=== PATIENT | female | born 1990 | race Caucasian/White ===

== ENCOUNTER 2018-12-13 11:15 | Inpatient (IN) | payer OTHER ==
[2018-12-13] MEDS: DEXTROSE 5%-LACTATED RINGERS 1,000 ML IV SCH ×2 (11:30→19:45)
[2018-12-13] MEDS ORDERED: AMPICILLIN - 2 GM in SODIUM CHLORIDE 100 ML IVPB ONE (12:00)
[2018-12-13 12:38] LABS: BASO % 0.5 % (0-2.0); EOS % 0.2 % (0-4.5); HEMATOCRIT 35.1 % (32.4-45.2); HEMOGLOBIN 11.8 GM/dL (10.7-15.3); LYMPH % 20.8 % (8-40); MCH 29.1 pg (25.7-33.7); MCHC 33.7 g/dl (32.0-36.0); MEAN CELL VOLUME 86.3 fl (80-96); MEAN PLT VOLUME 11.1 fl (7.5-11.1); MONO % 7.4 % (3.8-10.2); NEUT % 71.1 % (42.8-82.8); PLATELET COUNT 112 K/MM3 (134-434); RBC 4.07 M/mm3 (3.60-5.2); RDW 17.2 % (11.6-15.6)
[2018-12-13 12:48] VITALS: BMI 28.3
[2018-12-13 12:50] LABS: INR 0.91 (0.83-1.09); PROTHROMBIN TIME (PATIENT) 10.7 SEC (9.7-13.0)
--- NOTE | 2018-12-13 13:00 | HP ---
Past Medical History - Primary Care Physician PCP:: Josef Waters - Admission Chief Complaint: 40 weeks, labor History of Present Illness: 28 yo f 40 weeks,c/o pinkish discharge, low abdominal cramps, no rom, no fever , cx 3 cm 70 vx -3 ,membrane bulging, fhr cat 1, irregular contraction History Source: Patient Limitations to Obtaining History: Language Barrier - Past Medical History ...: 3 ...Para: 2 ...Term: 2 ...: 0 ...Spon : 0 ...Induced : 0 ...Multiple Gestation: 0 ...LMP: 04/08/18 ... Weeks Gestation by Dates: 35.4 ...EDC by Dates: 01/13/19 ...EDC by Sono: 12/13/18 - Past Surgical History Hx Myomectomy: No Hx Transabdominal Cerclage: No - Smoking History Smoking history: Never smoked Have you smoked in the past 12 months: No - Alcohol/Substance Use Hx Alcohol Use: No - Social History History of Recent Travel: No Home Medications - Allergies Allergies/Adverse Reactions: Allergies Allergy/AdvReac Type Severity Reaction Status Date / Time No Known Allergies Allergy Verified 12/13/18 11:55 - Home Medications Home Medications: Ambulatory Orders Prenat 115/Iron Fum/Folic/Dss [ 19 Tablet] 1 each PO DAILY 12/13/18 Review of Systems - Review of Systems Constitutional: reports: No Symptoms Eyes: reports: No Symptoms HENT: reports: No Symptoms Neck: reports: No Symptoms Cardiovascular: reports: No Symptoms Respiratory: reports: No Symptoms Gastrointestinal: reports: No Symptoms Breasts: reports: No Symptoms Reported Musculoskeletal: reports: No Symptoms Integumentary: reports: No Symptoms Neurological: reports: No Symptoms Endocrine: reports: No Symptoms Hematology/Lymphatic: reports: No Symptoms Psychiatric: reports: No Symptoms Physical Exam - Maternity Vital Signs: Vital Signs Temperature 98.4 F 12/13/18 11:30 Pulse Rate 68 12/13/18 11:30 Respiratory Rate 18 12/13/18 11:30 Blood Pressure 120/66 12/13/18 11:30 O2 Sat by Pulse Oximetry (%) Constitutional: Yes: Well Nourished, No Distress, Calm Eyes: Yes: WNL, Conjunctiva Clear, EOM Intact HENT: Yes: WNL, Atraumatic, Normocephalic Neck: Yes: WNL, Supple, Trachea Midline Cardiovascular: Yes: WNL, Regular Rate and Rhythm Breast(s): Yes: WNL - Abdominal Exam/OB Fundal Height: 38 Number of Fetuses: Single Presentation: Vertex Contractions: Yes Regularity: Irregular Intensity: Moderate Monitor Mode: External Heart Rate Location: [facility] Category: I Accelerations: Uniform Decelerations: None - Vaginal Exam/OB Vaginal Bleediing: No Speculum Exam: No Dilatation (cm): 3 cm Effacement (%): 70 Amniotic Membrane Status: Bulging Presentation: Vertex/Position Station: -3 - Labs Lab Results: CBC, BMP 12/13/18 12:25
[2018-12-13 13:04] LABS: ANION GAP 9 MMOL/L (8-16); BLOOD UREA NITROGEN 10 mg/dL (7-18); CALCIUM 8.4 mg/dL (8.5-10.1); CHLORIDE 108 mmol/L (98-107); CO2 23 mmol/L (21-32); CREATININE 0.6 mg/dL (0.55-1.3); GLUCOSE,RANDOM 75 mg/dL (74-106); SODIUM 141 mmol/L (136-145)
[2018-12-13] MEDS ORDERED: BUTORPHANOL TARTRATE 1 MG/ML VIAL IVPUSH PRN (13:05)
[2018-12-13] MEDS ORDERED: PROMETHAZINE HCL 25 MG/1 ML VIAL IVPUSH ONE (13:15)
[2018-12-13] MEDS ORDERED: TUBERCULIN PPD 5 TU/0.1ML SYRINGE (IN PATIENT USE ONLY) ID ONE (13:30)
[2018-12-13] MEDS ORDERED: AMPICILLIN SODIUM 1 GM VIAL ONE ×2 (14:55→20:00)
[2018-12-13 15:45] LABS: URINE APPEARANCE CLEAR; URINE BILIRUBIN NEGATIVE (<2.0 mg/dL); URINE COLOR LTYELLOW; URINE GLUCOSE (UA) NEGATIVE (NEGATIVE); URINE KETONE NEGATIVE (NEGATIVE); URINE LEUK ESTERASE NEGATIVE (NEGATIVE); URINE NITRITE NEGATIVE (NEGATIVE); URINE PROTEIN NEGATIVE (NEGATIVE); URINE UROBILINOGEN NEGATIVE mg/dL (0.2-1.0)
[2018-12-13 15:48] LABS: EPI CELLS RARE /HPF (FEW)
[2018-12-13] MEDS: AMPICILLIN - 1 GM in SODIUM CHLORIDE 100 ML IVPB SCH ×2 (16:00→20:08)
[2018-12-13 16:15] LABS: COCAINE, UR NEGATIVE ng/ml (CUTOFF=300); METHADONE, UR NEGATIVE ng/ml (CUTOFF=300); OPIATES, URI NEGATIVE ng/ml (CUTOFF=300); PHENCYCLIDINE,URINE NEGATIVE ng/ml (CUTOFF=25); URINE AMPHETAMINES NEGATIVE ng/ml (CUTOFF=500); URINE BARBITURATES NEGATIVE ng/ml (CUTOFF=200); URINE BENZODIAZEPINES NEGATIVE ng/ml (CUTOFF=200)
--- NOTE | 2018-12-13 23:44 | PN ---
Progress Note (short form) - Note Progress Note: cx 5 cm 80 vx -3 mi, fhr cat1 , irregular contraction , pitocin rba discussed
[2018-12-13] MEDS ORDERED: OXYTOCIN 30 UNITS in 0.9% NS 30 UNIT/500 ML INFUS.BAG IVPB SCH (23:45)
[2018-12-14] MEDS ORDERED: AMPICILLIN SODIUM 1 GM VIAL ONE ×2 (00:09→03:39)
[2018-12-14] MEDS: AMPICILLIN - 1 GM in SODIUM CHLORIDE 100 ML IVPB SCH ×3 (00:10→12:49)
[2018-12-14] MEDS ORDERED: OXYTOCIN 30 UNITS in 0.9% NS 30 UNIT/500 ML INFUS.BAG IVPB ONE (00:23)
[2018-12-14] MEDS ORDERED: BUTORPHANOL TARTRATE 1 MG/ML VIAL ONE ×5 (00:43→07:36)
[2018-12-14] MEDS ORDERED: PROMETHAZINE HCL 25 MG/1 ML VIAL ONE ×3 (00:44→07:36)
[2018-12-14] MEDS: DEXTROSE 5%-LACTATED RINGERS 1,000 ML IV SCH (03:59)
[2018-12-14] MEDS ORDERED: BUTORPHANOL TARTRATE 1 MG/ML VIAL IVPUSH ONE ×2 (04:20)
[2018-12-14] MEDS ORDERED: PROMETHAZINE HCL 25 MG/1 ML VIAL IVPUSH ONE (04:20)
[2018-12-14] MEDS ORDERED: OXYTOCIN 20 UNITS in 0.9% NS 20 UNIT/1,000 ML INFUS.BAG IV ONE ×2 (04:35→07:09)
[2018-12-14] MEDS: OXYTOCIN 20 UNITS in 0.9% NS 20 UNIT/1,000 ML INFUS.BAG IV SCH ×2 (05:00→07:05)
[2018-12-14] MEDS ORDERED: ACETAMINOPHEN 325 MG TABLET (FP) PO PRN (05:11)
[2018-12-14] MEDS ORDERED: WITCH HAZEL 50% (TUCKS) 40 PAD/JAR PAD TP PRN (05:11)
[2018-12-14] MEDS ORDERED: BENZOCAINE 28 GM HEMORRHOIDAL OINTMENT TP PRN (05:11)
[2018-12-14] MEDS ORDERED: METHYLERGONOVINE MALEATE 0.2 MG/1 ML AMP IM PRN (05:11)
[2018-12-14] MEDS ORDERED: IBUPROFEN 600 MG TABLET (FP) PO PRN (05:11)
[2018-12-14] MEDS ORDERED: BENZOCAINE 20% 57 GM BOTTLE TP PRN (05:11)
[2018-12-14] MEDS ORDERED: BISACODYL 10 MG SUPP.RECT RC PRN (05:11)
[2018-12-14] MEDS ORDERED: D5W-LR W/ 20 UNITS OXYTOCIN 1,000 ML IV SCH (05:15)
[2018-12-14 05:26] LABS: VENOUS PC02 47.5 mmHg (38-52); VENOUS PH 7.31 (7.32-7.42); VENOUS PO2 31.6 mmHg (28-48)
[2018-12-14] MEDS ORDERED: PROMETHAZINE HCL 25 MG/1 ML VIAL IVPB ONE (07:40)
[2018-12-14] MEDS ORDERED: FERRIC SUBSULFATE 500 ML BOTTLE TP ONE (09:11)
[2018-12-14 10:17] LABS: BASO % 0.5 % (0-2.0); HEMATOCRIT 40.5 % (32.4-45.2); HEMOGLOBIN 13.7 GM/dL (10.7-15.3); LYMPH % 7.1 % (8-40); MCH 29.2 pg (25.7-33.7); MCHC 33.9 g/dl (32.0-36.0); MEAN PLT VOLUME 11.4 fl (7.5-11.1); MONO % 5.4 % (3.8-10.2); PLATELET COUNT 111 K/MM3 (134-434); RBC 4.71 M/mm3 (3.60-5.2); RDW 17.6 % (11.6-15.6); WHITE BLOOD COUNT 10.6 K/mm3 (4.0-10.0)
[2018-12-14 10:54] LABS: INR 0.97 (0.83-1.09); PROTHROMBIN TIME (PATIENT) 11.5 SEC (9.7-13.0)
[2018-12-14] MEDS: FERROUS SO4 325 MG TABLET (FP) PO SCH ×2 (11:57→21:00)
[2018-12-14] MEDS: PRENATAL VITAMINS W/ FOLIC ACID TABLET (FP) PO SCH (11:58)
--- NOTE | 2018-12-14 17:42 | PN ---
Progress Note (short form) - Note Progress Note: was called by nurse has vaginal trickling , no heavy VG, no pain , low platelets VSS , appears well uterus firm , non tender speculum exam . no laceration, slight oozing from edematous crvix, no laceration seen sergiseal and Mosel solution applied over cervix, bleeding stopped , vagina was packed with lone lap pad, which was reomed 2 hrs later , no active bleeding seen after packing removed
[2018-12-15 07:20] LABS: BASO % 0.3 % (0-2.0); HEMATOCRIT 31.5 % (32.4-45.2); HEMOGLOBIN 10.6 GM/dL (10.7-15.3); LYMPH % 24.8 % (8-40); MCH 29.2 pg (25.7-33.7); MCHC 33.7 g/dl (32.0-36.0); MEAN CELL VOLUME 86.7 fl (80-96); MEAN PLT VOLUME 10.7 fl (7.5-11.1); MONO % 6.9 % (3.8-10.2); PLATELET COUNT 92 K/MM3 (134-434); RBC 3.64 M/mm3 (3.60-5.2); RDW 18.1 % (11.6-15.6); WHITE BLOOD COUNT 6.6 K/mm3 (4.0-10.0)
[2018-12-15] MEDS: FERROUS SO4 325 MG TABLET (FP) PO SCH ×2 (09:24→22:48)
[2018-12-15] MEDS: PRENATAL VITAMINS W/ FOLIC ACID TABLET (FP) PO SCH (09:24)
--- NOTE | 2018-12-15 15:10 | PN ---
Post Progress Note - Subjective Subjective: 28 yo Para 3 status post vaginal delivery, seen and evaluated. Doing well. Post Day: 1 Type of Delivery: Vital Signs: Vital Signs Temperature 98 F 12/15/18 10:00 Pulse Rate 51 L 12/15/18 10:00 Respiratory Rate 20 12/15/18 10:00 Blood Pressure 118/65 12/15/18 10:00 O2 Sat by Pulse Oximetry (%) 99 12/14/18 12:52 Breast Exam: Yes: Soft Uterus: Yes: Fundus Firm Abdomen/GI: Yes: Abdomen soft, Tolerating PO Lochia: Yes: Rubra Lochia, amount: Moderate Extremities: Yes: Calves non-tender Perineum: Yes: Intact Activity: Ambulating - Labs Labs: CBC WBC 6.6 K/mm3 (4.0-10.0) 12/15/18 06:30 RBC 3.64 M/mm3 (3.60-5.2) 12/15/18 06:30 Hgb 10.6 GM/dL (10.7-15.3) L 12/15/18 06:30 Hct 31.5 % (32.4-45.2) L D 12/15/18 06:30 MCV 86.7 fl (80-96) 12/15/18 06:30 MCH 29.2 pg (25.7-33.7) 12/15/18 06:30 MCHC 33.7 g/dl (32.0-36.0) 12/15/18 06:30 RDW 18.1 % (11.6-15.6) H 12/15/18 06:30 Plt Count 92 K/MM3 (134-434) L 12/15/18 06:30 MPV 10.7 fl (7.5-11.1) 12/15/18 06:30 Absolute Neuts (auto) 4.4 K/mm3 (1.5-8.0) 12/15/18 06:30 Neutrophils % 67.0 % (42.8-82.8) D 12/15/18 06:30 Lymphocytes % 24.8 % (8-40) D 12/15/18 06:30 Monocytes % 6.9 % (3.8-10.2) 12/15/18 06:30 Eosinophils % 1.0 % (0-4.5) D 12/15/18 06:30 Basophils % 0.3 % (0-2.0) 12/15/18 06:30 Nucleated RBC % 0 % (0-0) 12/15/18 06:30 Problem List - Problems (1) Status post normal vaginal delivery Code(s): [id number] - Assessment/Plan Status post normal vaginal delivery Stable Continue routine care
[2018-12-15] MEDS ORDERED: SENNOSIDES/DOCUSATE COMBO (SENNA PLUS) TABLET (UD) PO PRN (22:00)
--- NOTE | 2018-12-16 07:14 | DS ---
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 Vital Signs: Vital Signs Temperature 98.3 F 12/15/18 22:00 Pulse Rate 59 L 12/15/18 22:00 Respiratory Rate 20 12/15/18 22:00 Blood Pressure 119/68 12/15/18 22:00 O2 Sat by Pulse Oximetry (%) 99 12/14/18 12:52 Constitutional: Yes: Well Nourished, No Distress, Calm Eyes: Yes: WNL, Conjunctiva Clear, EOM Intact HENT: Yes: WNL, Atraumatic, Normocephalic Neck: Yes: WNL, Supple, Trachea Midline Cardiovascular: Yes: WNL, Regular Rate and Rhythm Respiratory: Yes: WNL, Regular, CTA Bilaterally Gastrointestinal: Yes: WNL ...Rectal Exam: Yes: WNL Renal/: Yes: WNL Pelvis: Yes: WNL External Genitalia: Yes: Normal ....Post : Yes: Uterus firm, Uterus non-tender, Slight lochia rubra Breast(s): Yes: WNL Musculoskeletal: Yes: WNL Extremities: Yes: WNL Edema: No Integumentary: Yes: WNL Neurological: Yes: WNL, Alert, Oriented ...Motor Strength: WNL Psychiatric: Yes: WNL, Alert, Oriented Labs: CBC, BMP 12/15/18 06:30 12/13/18 12:25 Delivery - Delivery Vaginal Delivery: Spontaneous (no complication) Type of Anesthesia: None Episiotomy/Laceration: None EBL (cc): 300 Delivery, Single - Stages of Labor Date 1st Stage Initiatied: 12/13/18 Time 1st Stage Initiated: 10:00 Date 2nd Stage Initiated: 12/14/18 Time 2nd Stage Initiated: 04:50 Date of Delivery: 12/14/18 Time of Delivery: 04:57 Time Placenta Delivered: 05:00 Placenta: Yes: Spontaneous - Condition of Transliterator/Drafter Electronic Present: No Infant Gender: Female Weight: 8 lb 4 oz Position: Left, OA Total Hours ROM (Hrs/Mins): 22 hours 57 minutes - 1 Minute Total Score: 9 5 Minutes Total Score: 9 - Feeding Plan Initial Plan: Elected not to breastfeed exclusively throughout hospitalization Discharge Summary Reason For Visit: LABOR ADMISSION Current Active Problems Status post normal vaginal delivery (Acute) Procedures: Principal: Condition: Good - Instructions Diet, Activity, Other Instructions: regular diet, no intercourse , if fever , heavy vaginal delivery , pain to ER Referrals: Josef Waters MD [Staff Physician] - Disposition: HOME - Home Medications Comprehensive Discharge Medication List: Ambulatory Orders Prenat 115/Iron Fum/Folic/Dss [ 19 Tablet] 1 each PO DAILY 12/13/18 Ibuprofen [Motrin -] 600 mg PO QID #28 tablet 12/15/18
[2018-12-16] MEDS: FERROUS SO4 325 MG TABLET (FP) PO SCH (09:19)
[2018-12-16] MEDS: PRENATAL VITAMINS W/ FOLIC ACID TABLET (FP) PO SCH (09:19)
[2018-12-16 09:39] VITALS: BP 118/81; PULSE 56; TEMP 98
== END 2018-12-16 14:03 | disposition home or self-care (01) | DRG 560 ==
LOC: JLDR 11:15 → J3W 12-14 12:29
PROVIDERS: ADMIT Obstetrics & Gynecology; ATTEND Obstetrics & Gynecology
PROC: 10E0XZZ Delivery of Products of Conception, External Approach (ICD-10-PCS; principal; 2018-12-14)
DX: O48.0 Post-term pregnancy (principal); Z3A.40 40 weeks gestation of pregnancy; Z37.0 Single live birth
CPT/HCPCS: 36415; 59409; 80048; 80307; 81003; 81015; 82803; 85025; 85610; 85730; 86593; 86850; 86900; 86901